=== PATIENT | female | born 1950 | race Caucasian/White ===

== ENCOUNTER 2021-05-08 08:54 | Day surgery (SDC) | payer MEDICARE ==
--- NOTE | 2021-05-08 06:49 | P.GSHP ---
History of Present Illness H&P Date: 05/08/21 CHIEF COMPLAINT: Colon screen HISTORY OF PRESENT ILLNESS: The patient is a 71-year-old female who presents for colon screen. Lower endoscopy was offered for further evaluation and management. PAST MEDICAL HISTORY: Please see list. PAST SURGICAL HISTORY: Please see list. MEDICATIONS: Please see list. ALLERGIES: Please see list. SOCIAL HISTORY: No illicit drug use FAMILY HISTORY: No reports of Crohn disease or ulcerative colitis. REVIEW OF ORGAN SYSTEMS: CONSTITUTIONAL: No reports of fevers or chills. PHYSICAL EXAM: VITAL SIGNS: Stable GENERAL: Well-developed pleasant in no acute distress. HEENT: No scleral icterus. Extraocular movements grossly intact. Moist buccal mucosa. NECK: Supple without lymphadenopathy. CHEST: Unlabored respirations. Equal bilateral excursions. CARDIOVASCULAR: Regular rate and rhythm. Distal 2+ pulses. ABDOMEN: Soft, nontender, nondistended. MUSCULOSKELETAL: No clubbing, cyanosis, or edema. ASSESSMENT: 1. Colon screen. PLAN: 1. Recommend proceeding with a lower endoscopy Past Medical History Past Medical History: Cancer, COPD, Osteoarthritis (OA) Additional Past Medical History / Comment(s): NAIL FUNGUS. RIGHT BREAST CANCER (ESTROGEN RUBINA FOR 5 YEARS). History of Any Multi-Drug Resistant Organisms: None Reported Past Surgical History: Breast Surgery, Tubal Ligation Additional Past Surgical History / Comment(s): RIGHT MASTECTOMY 2014. RIGHT CATARACT REMOVAL. Past Anesthesia/Blood Transfusion Reactions: No Reported Reaction Past Psychological History: No Psychological Hx Reported Smoking Status: Former smoker Past Alcohol Use History: Occasional Additional Past Alcohol Use History / Comment(s): QUIT SMOKING,1989 (2 PACKS PER WEEK). Past Drug Use History: None Reported Medications and Allergies Home Medications Medication Instructions Recorded Confirmed Type Calcium Carbonate [Calcium] 1 tab PO DAILY 05/06/21 05/06/21 History L.acidoph,Paracasei, B.lactis 1 cap PO DAILY 05/06/21 05/06/21 History [Probiotic] Multivitamins, Thera [Multivitamin 1 tab PO DAILY 05/06/21 05/06/21 History (formulary)] Terbinafine [LamISIL] 250 mg PO DAILY 05/06/21 05/06/21 History Tiotropium Br/Olodaterol HCl 1 puff INHALATION QAM 05/06/21 05/06/21 History [Stiolto Respimat Inhal [place]] Allergies Allergy/AdvReac Type Severity Reaction Status Date / Time No Known Allergies Allergy Verified 05/06/21 09:29
[~2021-05-08 08:54] MED LIST: LACTATED RINGERS 1,000 ML IV SCH; LIDOCAINE 1% (10MG/ML) FOR IV START INTRADERMA PRN
[2021-05-08 09:36] VITALS: TEMP 98
[2021-05-08] MEDS ORDERED: PROPOFOL 10 MG/ML 20 ML VIAL IV ONE (10:14)
--- NOTE | 2021-05-08 10:35 | P.PCN ---
Date of Procedure: 05/08/21 Description of Procedure: PREOPERATIVE DIAGNOSIS: Colonoscopy screening. Family history colon polyps mother, sister POSTOPERATIVE DIAGNOSIS: Colonoscopy screening. Intact hemorrhoids, grade 2 OPERATION: Colonoscopy to the ascending colon SURGEON: Maya Cee MD. ANESTHESIA: MAC. INDICATIONS: The patient is a 71-year-old female who presents for colonoscopy screening. Benefits and risks were described and informed consent was obtained. DESCRIPTION OF PROCEDURE: The patient had undergone Sutab prep. The patient had been brought into the operating room and laid in the left lateral decubitus position. After adequate intravenous sedation, the rectum was examined with 2% lidocaine jelly. No external hemorrhoids were encountered. The rectal tone was within normal limits. No lesions were palpated in the rectal vault. An Olympus colonoscope was advanced to the ascending colon. Abdominal pressure was used to to moderate redundancy of the sigmoid colon. The prep was good. No scattered diverticulosis was encountered. No colonic polyps were found. No evidence of focal colitis was found. Retroflexion of the scope demonstrated grade 2 internal hemorrhoids without active bleeding or inflammation. The colon was desufflated. The patient had tolerated the procedure well. Withdrawal time was over 6 minutes. FINDINGS: Aronchick preparation quality scale 2 (1-5) Internal hemorrhoids, grade 2 No external prolapsed hemorrhoids. No arteriovenous malformations. No adenomatous polyps. No focal colitis. RECOMMENDATIONS: Lower endoscopy in 5 years, 2025 Plan - Discharge Summary Discharge Rx Participant: No New Discharge Prescriptions: Continue Multivitamins, Thera [Multivitamin (formulary)] 1 tab PO DAILY L.acidoph,Paracasei, B.lactis [Probiotic] 1 cap PO DAILY Terbinafine [LamISIL] 250 mg PO DAILY Tiotropium Br/Olodaterol HCl [Stiolto Respimat Inhal [place]] 1 puff INHALATION QAM Calcium Carbonate [Calcium] 1 tab PO DAILY Discharge Medication List Calcium Carbonate [Calcium] 1 tab PO DAILY 05/06/21 [History] L.acidoph,Paracasei, B.lactis [Probiotic] 1 cap PO DAILY 05/06/21 [History] Multivitamins, Thera [Multivitamin (formulary)] 1 tab PO DAILY 05/06/21 [History] Terbinafine [LamISIL] 250 mg PO DAILY 05/06/21 [History] Tiotropium Br/Olodaterol HCl [Stiolto Respimat Inhal [place]] 1 puff INHALATION QAM 05/06/21 [History] Follow up Appointment(s)/Referral(s): Maya Cee MD [STAFF PHYSICIAN] - 05/28/21 Patient Instructions/Handouts: *Surgery [facility] - (Anesthesia) Endoscopy Discharge Instructions, Colonoscopy (DC) Activity/Diet/Wound Care/Special Instructions: Repeat colonoscopy 5 years2025 Discharge Disposition: HOME SELF-CARE
[2021-05-08 10:42] VITALS: RESP 16
[2021-05-08 11:07] VITALS: BP 108/63; PULSE 72
== END 2021-05-08 11:44 | disposition home or self-care (01) ==
LOC: ORWHC2ENDO 08:54
PROVIDERS: ATTEND Surgery Plastic and Reconstructive Surgery
DX: Z12.11 Encounter for screening for malignant neoplasm of colon (principal); Q43.8 Other specified congenital malformations of intestine; K64.1 Second degree hemorrhoids; M19.90 Unspecified osteoarthritis, unspecified site; Z83.71 Family history of colonic polyps; J44.9 Chronic obstructive pulmonary disease, unspecified; Z85.3 Personal history of malignant neoplasm of breast; B35.1 Tinea unguium; Z98.51 Tubal ligation status; Z90.11 Acquired absence of right breast and nipple; Z98.41 Cataract extraction status, right eye; Z87.891 Personal history of nicotine dependence; Z79.899 Other long term (current) drug therapy
CPT/HCPCS: J2704; G0105

== ENCOUNTER → 2024-08-29 | Outpatient (CLI) | payer OTHER ==
--- NOTE | 2024-08-29 14:56 | CT ---
CT right ankle HISTORY: Ankle fracture. COMPARISON: None. TECHNIQUE: Multiple axial images are obtained through the ankle without IV contrast. Coronal and sagi ttal reconstructions were generated and reviewed. There is an oblique slightly comminuted fracture of the distal right fibula above the level of the ti bial plafond. There is a posterior tibial fracture involving less than 25% of the articular surface. The medial malleolus is intact. There is mild widening of the medial aspect of the ankle mortise. There is moderate soft tissue swelling. IMPRESSION: 1. Bimalleolar fractures described above. 2. Mild widening of the medial aspect of the ankle mortise. 3. Moderate soft tissue swelling [facility], , 08/29/2024 2:53 PM
== END | disposition home or self-care (01) ==
LOC: RADCTMAIN 14:27
PROVIDERS: ATTEND Podiatrist
DX: S82.841A Displaced bimalleolar fracture of right lower leg, initial encounter for closed fracture

== ENCOUNTER 2024-09-02 10:16 | Day surgery (SDC) | payer MEDICARE, OTHER ==
[2024-09-02] MEDS: IV FLUID CONTINUATION 1,000 ML IV ONE (10:53)
[2024-09-02] MEDS: LACTATED RINGERS 1,000 ML IV SCH (11:16)
[2024-09-02] MEDS: ONDANSETRON 4 MG/2 ML VIAL IVP ONE (11:26)
[2024-09-02] MEDS: DEXAMETHASONE SOD PHOSPHATE 4 MG/ML 1 ML VIAL IV ONE (11:26)
[2024-09-02] MEDS: fentaNYL (PF) 50 MCG/ML 2 ML AMP IVP PRN (11:38)
[2024-09-02] MEDS: MIDAZOLAM 2 MG/2 ML VIAL IV PRN (11:38)
--- NOTE | 2024-09-02 11:57 | P.ANPRN ---
Procedure Note - Anesthesia - Nerve Block Performed Right Adductor Canal Single Time Out Performed: Yes Date of Procedure: 09/02/24 Procedure Start Time: 11:38 Procedure Stop Time: 11:46 Location of Patient: PreOp Indication: Acute Post-Operative Pain, Requested by Surgeon Sedation Type: Sedate with meaningful contact maintained Preparation: Sterile Prep Position: Supine Needle Types: Pajunk Needle Gauge: 21 Ultrasound used to visualize needle placement: Yes Ultrasound used to observe medication spread: Yes Injectate: 0.5% Ropivacaine (see comment for volume) (15 ml + 15 ml NS + 4 mg Dexamethasone) Blood Aspirated: No Pain Paresthesia on Injection Noted: No Resistance on Injection: Normal Image Stored and Saved: Yes Events: Uneventful and Well Tolerated
--- NOTE | 2024-09-02 11:59 | P.ANPRN ---
Procedure Note - Anesthesia - Nerve Block Performed Right Popliteal Single Time Out Performed: Yes Date of Procedure: 09/02/24 Procedure Start Time: 11:47 Procedure Stop Time: 11:55 Location of Patient: PreOp Indication: Acute Post-Operative Pain, Requested by Surgeon Sedation Type: Sedate with meaningful contact maintained Preparation: Sterile Prep Position: Left Lateral Needle Types: Pajunk Needle Gauge: 21 Ultrasound used to visualize needle placement: Yes Ultrasound used to observe medication spread: Yes Injectate: 0.5% Ropivacaine (see comment for volume) (15 ml + 15 ml NS + 4 mg Dexamethasone) Blood Aspirated: No Pain Paresthesia on Injection Noted: No Resistance on Injection: Normal Image Stored and Saved: Yes Events: Uneventful and Well Tolerated
[2024-09-02] MEDS ORDERED: LIDOCAINE 1% INJ 10MG/ML (20 ML MDV) ONE (12:37)
[2024-09-02] MEDS ORDERED: ROPIVACAINE 5 MG/ML 30 ML VIAL ONE (12:37)
[2024-09-02] MEDS ORDERED: SODIUM CHLORIDE 0.9% (PF) 10 ML VIAL ONE (12:37)
[2024-09-02] MEDS ORDERED: DEXAMETHASONE SOD PHOSPHATE 4 MG/ML 1 ML VIAL ONE (12:37)
[2024-09-02] MEDS ORDERED: PROPOFOL 10 MG/ML 20 ML VIAL IV ONE (12:37)
[2024-09-02] MEDS ORDERED: fentaNYL (PF) 50 MCG/ML 2 ML AMP ONE (12:37)
[2024-09-02] MEDS ORDERED: PHENYLEPHRINE-0.9% NACL SYG 1,000 MCG/10 ML SYRINGE ONE (12:37)
--- NOTE | 2024-09-02 13:54 | P.OP ---
Date of Procedure: 09/02/24 Preoperative Diagnosis: 1. Displaced bimalleolar fracture right ankle 2. Ruptured syndesmosis right ankle Postoperative Diagnosis: 1. Same 2. Same Procedure(s) Performed: 1. Open reduction with internal fixation bimalleolar fracture right ankle (lateral and posterior malleolus) 2. Open reduction with internal fixation right syndesmosis Implants: [place] anatomic lateral malleolar plate with associated locking and nonlocking screws Anesthesia: PATRICIA Surgeon: Teddy Martinez Estimated Blood Loss (ml): 5 Pathology: none sent Condition: stable Disposition: PACU Description of Procedure: Prior to the patient being brought to the operating room, anesthesia administered a nerve block on the right lower extremity. The patient was brought into the operative room and placed on table in supine position. Timeout was taken to confirm correct patient identifiers, correct laterality of surgery, and correct procedure. Once all staff in the room were in agreement with the timeout, the patient was induced and placed under general anesthesia. A well-pa dded tourniquet was placed on the right thigh and a wedge underneath the right hip to internally rotate the right leg. The right leg was then prepped and draped in usual manner. The leg was exsanguinated with an Esmarch bandage and then the tourniquet was inflated to 250 mmHg. Attention was directed over the lateral malleolus where a straight linear incision was made along the midline. The incision was deepened under the subcutaneous tissue careful to identify, avoid, and retract any neurovascular structures and cauterize any bleeding vessels. Dissection was carried down to level of the periosteum. A linear periosteal incision was madetissues were reflected anteriorly and posteriorly to expose the fracture. The soft tissue and hematoma were evacuated from between the fracture fragments. Bone reduction forceps were utilized to rotate and bring the fracture back into alignment. Once the fracture was aligned was clamped in place. Fluoroscopy confirmed the proper position of the fracture on AP and lateral views. A 3.5 mm nonlocking cortical screw was then used as an interfragmentary screw, utilizing lag technique, across the fracture site. There was excellent bone purchase with the screw and the fracture was compressed well. Fluoroscopy confirmed the proper placement of the as well as maintain alignment of the fracture. A [place] precontoured lateral malleolar plate was then positioned and adjusted under fluoroscopy until it was aligned appropriately. The plate was then temporarily fixated. Locking screws were placed in the most proximal 2 holes of the plate. Distal locking screws were then placed into the lateral malleolus. Drilling for the screws is done under direct fluoroscopic visualization so that the drill bit did not enter the lateral gutter of the ankle joint. The distal screw was a compression screw to contour the plate and the other 2 screws were locking screws. Fluoroscopic imaging showed that the plate was properly aligned and the fracture well reduced. under fluoroscopy, a guidewire for 3.5 mm cannulated screw was used to locate the entrance point for the posterior malleolar fracture. The plan was to apply a anterior to posterior screw. The wire was aligned in both the AP and lateral views. The wire was advanced until it penetrated the posterior cortex of the tibia in the area of the fracture. A small stab incision was made around the entrance point of the wire and blunt dissection was used to retract the soft tissue away from the wire. A partially- threaded cannulated screw was inserted over the wire and advanced until the head engaged the anterior cortex of the tibia and purchase the fracture fragment in the posterior tibia. Fluoroscopic imaging showed good compression of the fracture with maintained alignment. The screw was properly positioned. The wire was then removed area Under live fluoroscopic visualization external rotation and eversion of the ankle were done to assess the syndesmosis. It was noted that there was excessive motion of the syndesmosis as well as gapping of the medial gutter. The decision was made to use a syndesmotic screw. The proper hole the plate was chosen for the placement of the screw. Drilling was done through 3 cortices then a cortical nonlocking screw was inserted. The screw was tightened with the ankle maximally dorsiflexed. The screw was only tightened until it was firmly against the plate and not overtightened. Stress testing was performed again under fluoroscopy, and it showed that there was no instability of syndesmosis and no abnormal gapping of the medial gutter. The wound was then thoroughly irrigated with antibiotic saline. Deep closure was done with 2-0 Vicryl. Subcu closure was done with 4-0 Monocryl. Skin closure was done with candelaria. An Arthrex jumpstart dressing was placed over the incision and then a bulky dry dressings applied to the right ankle. The tourniquet was released and capillary refill return to all digits on the right foot. Then the patient was placed in a well-padded, well molded posterior mold/sugar tong splint. The ankle was held in neutral dorsiflexion and slight inversion as it dried. Once the splint was dried, anesthesia was reversed and the patient was taken recovery with vital signs stable.
[2024-09-02 13:55] VITALS: TEMP 11572
--- NOTE | 2024-09-02 13:56 | XR ---
Intraoperative/procedural fluoroscopic services were provided for ORIF right ankle. Fixation plate id entified involving the distal fibula with transverse oriented screw through the distal fibula and tib ia. Anteriorly oriented screw through the distal tibia. Total fluoroscopy time is 1.04 minutes with a total of 5 submitted images to PACS. Total DAP 0.8120 Gycm2. Please see the operative note for furt her details. [facility], , 09/02/2024 1:53 PM
[2024-09-02 14:02] VITALS: RESP 16
[2024-09-02] MEDS: HYDROmorphone 0.5 MG/0.5 ML SYRINGE IVP PRN (14:37)
[2024-09-02 16:23] VITALS: BP 126/65; PULSE 74
== END 2024-09-02 16:20 | disposition home or self-care (01) ==
LOC: OR 10:16
PROVIDERS: ATTEND Podiatrist
DX: S82.841A Displaced bimalleolar fracture of right lower leg, initial encounter for closed fracture (principal)
CPT/HCPCS: 64445; 64447